=== PATIENT | female | born 1975 | race Caucasian/White ===

== ENCOUNTER → 2016-10-07 | Outpatient (CLI) | payer BC ==
[2016-10-07 14:00] LABS: BUN/CREATININE RATIO 17 (0-10)
== END ==
LOC: LAB 13:04
PROVIDERS: Family Medicine
DX: E78.5 Hyperlipidemia, unspecified (principal); E55.9 Vitamin D deficiency, unspecified
CPT/HCPCS: 36415; 80053; 80061

== ENCOUNTER → 2020-10-14 | Outpatient (CLI) | payer BC, OTHER ==
[2020-10-14 08:03] LABS: HEMOGLOBIN 11.7 gm/dl (12.3-15.3); RED BLOOD COUNT 4.6 M/UL (4.00-5.10); WHITE BLOOD COUNT 9.3 K/UL (4.5-11.0)
[2020-10-14 08:27] LABS: BUN/CREATININE RATIO 22 (0-10)
== END ==
LOC: LAB 07:27
PROVIDERS: Family Medicine
DX: E55.9 Vitamin D deficiency, unspecified (principal); E78.5 Hyperlipidemia, unspecified; K21.9 Gastro-esophageal reflux disease without esophagitis; D64.9 Anemia, unspecified; Z79.899 Other long term (current) drug therapy
CPT/HCPCS: 36415; 80053; 80061; 82607; 82728; 83540; 83550; 83735; 85027

== ENCOUNTER → 2020-12-30 | Outpatient (CLI) | payer BC, OTHER ==
[~2020-12-30] MED LIST: BACTRIM DS TAB1 EACH PO; CLARITIN 10MG T10 MG PO; FERROUS SULFATE PO; OMEPRAZOLE20 M1 PO; SILVADENE CREAM20 GM TOP; STOOL SOFTENER PO; TOPAMAX25 MG PO; VITAMIN D3 PO; ZOFRAN4 MG PO
[2020-12-30 18:05] LABS: HEMOGLOBIN 13.1 gm/dl (12.3-15.3); RED BLOOD COUNT 4.72 M/UL (4.00-5.10)
== END ==
LOC: LAB 17:06
PROVIDERS: Family Medicine
DX: D50.9 Iron deficiency anemia, unspecified (principal)
CPT/HCPCS: 36415; 82728; 83540; 83550; 85025; 85045

== ENCOUNTER → 2021-01-07 | Outpatient (CLI) | payer BC, OTHER | LOC: EXRD 15:25 | DX: M25.551 Pain in right hip (principal) | CPT/HCPCS: 73502 ==

== ENCOUNTER → 2021-01-27 | Day surgery (SDC) | payer BC, OTHER | END | disposition home or self-care (01) | LOC: OR 06:54 | DX: D50.9 Iron deficiency anemia, unspecified (principal); K21.00 Gastro-esophageal reflux disease with esophagitis, without bleeding; K31.9 Disease of stomach and duodenum, unspecified; K64.4 Residual hemorrhoidal skin tags; T24.011A Burn of unspecified degree of right thigh, initial encounter; F41.9 Anxiety disorder, unspecified; E78.5 Hyperlipidemia, unspecified; Z87.891 Personal history of nicotine dependence; Z88.5 Allergy status to narcotic agent; Z88.8 Allergy status to other drugs, medicaments and biological substances; Z79.2 Long term (current) use of antibiotics; Z79.899 Other long term (current) drug therapy | CPT/HCPCS: J2704; J7120 ==

== ENCOUNTER → 2021-06-09 | Outpatient (CLI) | payer BC ==
[2021-06-09 11:28] LABS: HEMOGLOBIN 13.1 gm/dl (12.3-15.3); RED BLOOD COUNT 4.57 M/UL (4.00-5.10); WHITE BLOOD COUNT 9.2 K/UL (4.5-11.0)
[2021-06-10 07:12] LABS: A/G RATIO 1.9 (1.2-2.2); ALKALINE PHOSPHATASE, S 86 IU/L (44-121); ALT (SGPT) 15 IU/L (0-32); AST (SGOT) 16 IU/L (0-40); BILIRUBIN, TOTAL 0.3 mg/dL (0.0-1.2); BUN 12 mg/dL (6-24); BUN/CREATININE RATIO 18 (9-23); CALCIUM, SERUM 9.4 mg/dL (8.7-10.2); CARBON DIOXIDE, TOTAL 26 mmol/L (20-29); CHLORIDE, SERUM 102 mmol/L (96-106); CHOLESTEROL, TOTAL 195 mg/dL (100-199); CREATININE, SERUM 0.67 mg/dL (0.57-1.00); EGFR IF AFRICN AM 123 (>59); EGFR IF NONAFRICN AM 106 (>59); GLOBULIN, TOTAL 2.3 g/dL (1.5-4.5); GLUCOSE, SERUM 104 mg/dL (65-99); HDL CHOLESTEROL 63 mg/dL (>39); LDL CHOLESTEROL CALC 116 mg/dL (0-99); LDL/HDL RATIO 1.8 ratio (0.0-3.2); POTASSIUM, SERUM 4.9 mmol/L (3.5-5.2); PROTEIN, TOTAL, SERUM 6.7 g/dL (6.0-8.5); SODIUM, SERUM 141 mmol/L (134-144); T. CHOL/HDL RATIO 3.1 ratio (0.0-4.4); TRIGLYCERIDES 88 mg/dL (0-149)
[2021-06-10 08:13] LABS: VITAMIN D, 25-HYDROXY 29.6 ng/mL (30.0-100.0)
== END ==
LOC: LAB 10:32
PROVIDERS: Family Medicine
DX: E78.5 Hyperlipidemia, unspecified (principal); E55.9 Vitamin D deficiency, unspecified
CPT/HCPCS: 36415; 80053; 80061; 85027

== ENCOUNTER → 2022-02-15 | Outpatient (CLI) | payer BC | LOC: KOH-I 08:30 | DX: R10.32 Left lower quadrant pain (principal); R93.89 Abnormal findings on diagnostic imaging of other specified body structures; W19.XXXA Unspecified fall, initial encounter | CPT/HCPCS: 74176 ==